=== PATIENT | male | born 2000 | race Caucasian/White ===

== ENCOUNTER 2021-07-01 02:13 | Emergency (ER) | payer OTHER ==
[2021-07-01 02:58] LABS: HEMOGLOBIN 16.7 gm/dl (14.0-17.5); RED BLOOD COUNT 5.75 M/UL (4.20-5.50); WHITE BLOOD COUNT 15.3 K/UL (4.5-11.0)
[2021-07-01 03:16] LABS: BUN/CREATININE RATIO 11 (0-10)
[2021-07-01] MEDS ORDERED: PROVENTIL HFA6.7 GM INH (04:32)
[2021-07-01] MEDS ORDERED: PREDNISONE50 MG PO (04:32)
== END 2021-07-01 04:33 | disposition home or self-care (01) ==
LOC: ER1 02:13
PROVIDERS: Physician Assistant
DX: J45.41 Moderate persistent asthma with (acute) exacerbation (principal); F17.290 Nicotine dependence, other tobacco product, uncomplicated
CPT/HCPCS: 71045; 80053; 85025; 94644; 94760; 96374; 99285; J2930